=== PATIENT | male | born 1950 | race Caucasian/White ===

== ENCOUNTER → 2020-04-15 | Outpatient (CLI) | payer OTHER ==
[~2020-04-15] MED LIST: ALLOPURINOL 10100 M3 PO; ATENOLOL 50MG T50 MG PO; CIALIS5 MG PO; HYDROCHLOROTH12.5 M2 PO; LIPITOR20 MG PO; RYTHMOL SR225 MG PO; XARELTO20 MG PO; ZYRTEC10 M5 PO
== END ==
LOC: LAB 10:31
PROVIDERS: ATTEND Orthopaedic Surgery
DX: Z01.812 Encounter for preprocedural laboratory examination (principal); Z20.828 Contact with and (suspected) exposure to other viral communicable diseases

== ENCOUNTER 2020-04-20 10:32 | Day surgery (SDC) | payer OTHER, MEDICARE ==
[2020-04-15 11:11] LABS: HEMATOCRIT 40.8 % (42.0-52.0); HEMOGLOBIN 13.6 gm/dL (14.0-18.0); MCH 29.7 pg (26.0-34.0); MCHC 33.2 g/dL (28.0-37.0); MCV 89.5 fL (80.0-100.0); RBC 4.56 mil/uL (4.50-6.00); RDW 14.5 % (10.5-14.5); WBC 18.8 thou/uL (4.0-11.0)
[2020-04-15 11:31] LABS: ALBUMIN 3.8 g/dL (3.4-5.0); CALCIUM 8.7 mg/dL (8.5-10.1); CREATININE 0.9 mg/dL (0.7-1.3); POTASSIUM 4.1 mmol/L (3.5-5.1)
[2020-04-15 11:32] LABS: INR 1.2; PROTIME 12.7 Seconds (9.3-11.4)
[2020-04-15 11:37] LABS: URINE BILIRUBIN NEGATIVE (Negative); URINE BLOOD 3+ (Negative); URINE CLARITY CLEAR; URINE COLOR YELLOW; URINE GLUCOSE-RANDOM* NEGATIVE (Negative); URINE KETONES NEGATIVE (Negative); URINE NITRITE-REFLEX NEGATIVE (Negative); URINE PROTEIN (DIPSTICK) NEGATIVE (Negative); URINE SPECIFIC GRAVITY >= 1.030 (1.005-1.035); URINE UROBILINOGEN 0.2 E.U./dl (0.2-1.0)
[2020-04-15 11:40] LABS: URINE LEUKOCYTES-REFLEX 1+ (Negative)
--- NOTE | 2020-04-15 11:48 | EKG ---
[facility] [place] [address] ELECTROCARDIOGRAM REPORT Name: ANDREA BERRIOS Room #: PRE [facility] M.R.#: [id number] Admission: Attend Phys: Russ Humphrey MD Discharge: Date of : 50 Report #: [id number] THIS REPORT FOR: cc: Allen Marcum MD, Jay MD Santiago,Vlad [facility]ANN[facility] ~ THIS REPORT FOR: //name// [facility] Test Date: 2020-04-15 Test Time: 11:04:25 Pat Name: ANDREA BERRIOS Department: Room: Gender: M [employer]: MELISA : 1950 Requested By: Russ Humphrey Order Number: [id number] MD: Vlad Miller Measurements Intervals [place] Rate: 48 P: -53 TN: 248 QRS: -20 QRSD: 112 T: 35 QT: 472 QTc: 422 Interpretive Statements Sinus bradycardia Prolonged TN interval Borderline intraventricular conduction delay Compared to ECG 09/18/1990 22:31:00 Bradycardia, nonsinus now present First degree AV block now present Sinus bradycardia no longer present Electronically Signed On 04-15-2020 11:48:17 CDT by Vlad Miller [email or web address] <ELECTRONICALLY SIGNED> By: Vlad Miller MD, [facility] 04/15/20 1148 1104 1104 Vlad Miller MD, [facility] /EPI
[2020-04-15 11:52] LABS: CASTS None Seen /LPF (None Seen); MUCUS 0-3 Light strn/LPF (None Seen); SQUAMOUS 0-3 Few /LPF (0-3)
[2020-04-15 11:53] LABS: BACTERIA-REFLEX None Seen /HPF (None Seen); CRYSTALS None Seen /LPF (None Seen); URINE RBC 0-2 Rare /HPF (0-2); URINE WBC-REFLEX 0-5 Rare /HPF (0-5)
[2020-04-20] VITALS (10 sets, daily range): BP systolic 114–154; BP diastolic 49–73
[~2020-04-20] VITALS: Ht 180.3 cm; Wt 113.4 kg
--- NOTE | 2020-04-20 22:43 | NUR ---
1900 ASSUMED CARE OF PT AFTER BEDSIDE REPORT. 1944 BASELINE ASSESSMENT COMPLETED, SCD'S MAYKEL SOMERS AND POLAR PACK/NELSY DRS IN PLACE, MARCELINOG C/D/I. 6 PT UP TO BATHROOM WITH ASSIST X 2, NO PAIN, AMBULATING EASILY
[2020-04-21 04:27] VITALS: BP 126/62
[2020-04-21 06:24] LABS: HEMATOCRIT 39.8 % (42.0-52.0); HEMOGLOBIN 13.1 gm/dL (14.0-18.0); MCH 29.9 pg (26.0-34.0); MCHC 32.9 g/dL (28.0-37.0); MCV 90.9 fL (80.0-100.0); RBC 4.38 mil/uL (4.50-6.00); RDW 14.1 % (10.5-14.5); WBC 25.2 thou/uL (4.0-11.0)
--- NOTE | 2020-04-21 08:52 | NUR ---
ASSESSMENT: CM REVIEWED CHART AND MET WITH PATIENT AT THE BEDSIDE. PT IS HERE S/P LEFT MEDICAL COMP ARTHROPLASTY. PT REPORTS HE LIVES IN A HOUSE WITH HIS . PT REPORTS TWO STEPS TO ENTER AND NO STEPS HE HAS TO USE ONCE INSIDE. PT REPORTS HAVING A CANE, WALKER, AND CPAP AT HOME. PT REPORTS THAT HE DOES NOT HAVE OUTPATIENT THERAPY ARRANGED BUT WOULD LIKE TO DO IT AT [facility] [address] [facility] [address] (P)[phone]. PT IS TO WORK WITH THERAPY TODAY. CM WILL CONTINUE TO FOLLOW TO ASSIST NEEDED.
--- NOTE | 2020-04-21 14:30 | NUR ---
PT IS AOX4, VSS, PAIN CONTROLLED WITH ORAL ANALGESIC. PT DRESSING ON LEFT KNEE IS CDI. DENIES N/V AT THIS TIME, TOLERATING DIET WELL. PT UP WITH GAIT BELT AND WALKER. POLAR ICE, SCD, TEDS HOSE IN PLACE.
[2020-04-21 15:14] VITALS: BP 128/58
--- NOTE | 2020-04-27 10:47 | O ---
[facility] [place] [address] OPERATIVE REPORT Name: ANDREA BERRIOS Room #: DEP [facility] M.R.#: [id number] Admission: 04/20/20 Attend Phys: Russ Humphrey MD Discharge: 04/21/20 Date of : 50 Report #: [id number] THIS REPORT FOR: cc: Allen Marcum MD,Allen Humphrey,Russ Hoskins MD ~ CC: Allen Humphrey DATE OF SERVICE: 04/20/2020 PREOPERATIVE DIAGNOSIS: Left knee medial compartment osteoarthritis. POSTOPERATIVE DIAGNOSIS: Left knee medial compartment osteoarthritis. PROCEDURE: Left knee medial compartment arthroplasty using Navio robotic assistance. SURGEON: Russ Humphrey MD. CAR REPAIRMAN: Steph Ortiz PA-C. INDICATIONS FOR CAR REPAIRMAN: Throughout the case, extensive retraction and manipulation of the knee was required. This was afforded to me by my clinical assistant professor. ANESTHESIA: LMA with an adductor canal block. IMPLANTS: [employer] size 6 Journey Oxinium medial femoral component, a size 3 tibia and a size 10 polyethylene. TOURNIQUET TIME: 47 minutes ESTIMATED BLOOD LOSS: 25 mL COMPLICATIONS: None. SPECIMENS: None. CONDITION UPON LEAVING THE OPERATING ROOM: Stable. INDICATIONS FOR PROCEDURE: The patient is a 69-year-old gentleman with medial compartment, left knee osteoarthritis. He had failed conservative measures for this and after discussion with him, he elected for left medial compartment knee arthroplasty. DESCRIPTION OF PROCEDURE: Risks, benefits, alternatives, complications were [facility] [address] [place] [address] OPERATIVE REPORT Name: ANDREA BERRIOS Room #: DEP [facility] M.R.#: [id number] Admission: 04/20/20 Attend Phys: Russ Humphrey MD Discharge: 04/21/20 Date of : 50 Report #: [id number] discussed in detail with the patient including but not limited to risk of anesthesia, risk of damage to nerves, arteries, blood vessels, risk for infection, bleeding, risk for continued knee pain, need for reoperation. Informed consent was obtained from the patient. Left knee was appropriately marked in the preoperative holding area. IV clindamycin was given for preoperative antibiotics. He was brought to the operating room and placed in supine position on operating room table. LMA anesthesia was induced without complication. Tourniquet was placed on the left thigh. Left lower extremity was prepped and draped in normal sterile fashion. Timeout was performed properly identifying the patient and procedure as well as the instrumentation and implants. All in the operating room were in agreement. Left lower extremity was exsanguinated, tourniquet was inflated. Tourniquet time was 47 minutes. Standard anteromedial approach to the knee was made with #10 blade through the skin. Dissection was taken down sharply to the fascia and deep flaps were developed medially and laterally. Fresh #10 blade was used to make a medial parapatellar arthrotomy and the knee was inspected. There was [id number] medial compartment osteoarthritic change. The lateral and patellofemoral compartments were well maintained. ACL was intact. It was decided to proceed with medial compartment arthroplasty. Reference pins were placed in the femur and the tibia. The knee was then digitally mapped using the [email or web address] robotic system. We sized the size 6 femur with a size 3 tibia and a 9 spacer. After acceptance of the intraoperative plan, the femoral and tibial resections were made with a Navio bur. The tibia was sized, found to be a size 3. A size 3 tibial trial was then pinned and drilled. Size 6 femoral trial was then placed and this was trialed with a size 9 and then a size 10 polyethylene and size 10 polyethylene demonstrated 1 mm laxity medially throughout range of motion of the knee. After this, trial components were removed. Bony ends were thoroughly irrigated with normal saline. Final size 3 tibia, size 6 Journey II Oxinium medial femoral component were cemented into place using standard cementation techniques. While the cement cured, a periarticular injection consisting of morphine, ropivacaine, epinephrine and Toradol were placed around the knee joint capsule. After the cement cured, the tourniquet was deflated. Hemostasis was obtained with Bovie cautery. Final size 10 polyethylene was placed. A gram of vancomycin was placed deep in the joint. Fascia was closed with 0 Vicryl, skin was closed with 2-0 Vicryl, 3-0 Monocryl. Dermabond and a NELSY dressing were applied. The patient tolerated this procedure well and went to recovery room under care of Anesthesia postoperatively. <ELECTRONICALLY SIGNED> By: Russ Humphery MD 04/27/20 1047 [id number] Russ Humphrey MD /grazyna
== END 2020-04-21 16:34 | disposition home or self-care (01) ==
LOC: OR 10:32 → TBA 10:32 → OR 10:38 → 4S 15:30 → OR 04-21 16:34
PROVIDERS: ATTEND Orthopaedic Surgery
DX: M17.12 Unilateral primary osteoarthritis, left knee (principal); M25.562 Pain in left knee; I10 Essential (primary) hypertension; I48.91 Unspecified atrial fibrillation; G47.30 Sleep apnea, unspecified; Z98.890 Other specified postprocedural states; Z79.899 Other long term (current) drug therapy; Z87.891 Personal history of nicotine dependence; Z87.442 Personal history of urinary calculi; Z79.01 Long term (current) use of anticoagulants; Z90.49 Acquired absence of other specified parts of digestive tract; Z85.6 Personal history of leukemia; Z88.0 Allergy status to penicillin; Z88.8 Allergy status to other drugs, medicaments and biological substances
CPT/HCPCS: 50010; 50101; 50415; 50954; 51130; 51225; 51320; 53078; 53370; 54118; 56527; 56528; 57095; 57103; 57110; 57127; 57180; 62110; 62900; 64039; 70005